=== PATIENT | female | born 1955 | race Caucasian/White ===

== ENCOUNTER → 2022-08-16 11:02 | Day surgery (SDC) | payer MEDICARE, MEDICAID, SELFPAY ==
[2022-08-13 12:07] VITALS: BMI 33.6
[2022-08-16] VITALS (7 sets, daily range): BP systolic 116–147; BP diastolic 58–100; PULSE 79–89; RESP 14–22; TEMP 36.1–36.3; O2SAT 90–96; BMI 33.3
--- NOTE | 2022-08-16 11:42 | P.HP_ITS ---
History of Present Illness History of Present Illness Date Patient Seen: 08/16/22 Time Patient Seen: 11:42 Chief complaint: LEFT CARPAL TUNNEL RELEASE Narrative: 66-year-old female with neuropathy involving the left upper extremity. Patient had an EMG study positive for both carpal tunnel and cubital tunnel. Patient History Medical History Anemia Arthritis Asthma COPD (chronic obstructive pulmonary disease) COVID-19 virus infection (10/2021) Diabetes Emphysema lung Fibromyalgia GERD (gastroesophageal reflux disease) Headache, migraine Hepatitis History of angina History of carotid stenosis HLD (hyperlipidemia) HTN (hypertension) Liver disease Peripheral neuropathy Thyroid disease Surgical History History of bilateral tubal ligation History of carpal tunnel release History of section Hx of bilateral cataract extraction Hx of blepharoplasty S/P thyroid biopsy Family & Social History Social History: household members children Prior Living Arrangements Apartment/Condo Tobacco & Substance use: Smoking Status Former smoker alcohol intake former Substance Use Type does not use Meds Home Medications and Allergies Home Medications Medication Instructions Recorded Confirmed Type acetaminophen 500 mg tablet 500 mg PO Q6H PRN Pain 08/13/22 08/13/22 History albuterol sulfate 90 mcg/actuation 2 puff inhalation Q4-6H PRN 08/13/22 08/13/22 History aerosol inhaler Shortness Of Breath azithromycin 500 mg tablet 500 mg PO QMWF History of chronic 08/13/22 08/13/22 History lung infections budesonide 0.5 mg/2 mL suspension 0.5 mg inhalation BID 08/13/22 08/13/22 History for nebulization cyclobenzaprine 10 mg tablet 5 mg PO TID PRN Muscle Pain 08/13/22 08/13/22 History cyclosporine 0.05 % eye drops in a 1 drp EYE-BOTH BID 08/13/22 08/13/22 History dropperette (Restasis) diltiazem HCl 360 mg 360 mg PO QPM 08/13/22 08/13/22 History tablet,extended release 24 hr fluoxetine 10 mg tablet 10 mg PO QPM 08/13/22 08/13/22 History fluticasone propionate 50 1 - 2 spray intranasal DAILY 08/13/22 08/13/22 History mcg/actuation nasal spray,suspension hydrocodone 5 mg-acetaminophen 325 1 tab PO Q4-6H PRN Pain 08/13/22 08/13/22 History mg tablet insulin glargine 100 unit/mL (3 85 unit SUBCUT BEDTIME 08/13/22 08/13/22 History mL) subcutaneous pen (Lantus Solostar U-100 Insulin) insulin lispro 100 unit/mL 16 unit SUBCUT TID 08/13/22 08/13/22 History subcutaneous pen (Humalog KwikPen (U-100) Insulin) liraglutide 0.6 mg/0.1 mL (18 mg/3 1.8 mg SUBCUT Q24H 08/13/22 08/13/22 History mL) subcutaneous pen injector (Victoza 2-Jamie) lorazepam 1 mg tablet 1 mg PO TID PRN Anxiety, sleep 08/13/22 08/13/22 History losartan 50 mg tablet 50 mg PO DAILY 08/13/22 08/13/22 History metformin 500 mg tablet 500 mg PO DAILY 08/13/22 08/13/22 History rosuvastatin 5 mg tablet 5 mg PO DAILY 08/13/22 08/13/22 History tiotropium 2.5 mcg-olodaterol 2.5 2 puff inhalation DAILY 08/13/22 08/13/22 History mcg/actuation mist for inhalation (Stiolto Respimat) Allergies Allergy/AdvReac Type Severity Reaction Status Date / Time aspirin Allergy Severe Anaphylaxis Verified 08/13/22 12:31 lisinopril AdvReac Severe Cough Verified 08/13/22 12:31 Exam Narrative Exam Narrative: Patient with decreased sensation in both the median and ulnar nerve distribution. No sign of any significant thenar atrophy or intrinsic wasting. Patient has full range of motion of the wrist and fingers as well as the elbow. Positive Tinel's, thumb compression, Phalen test. Positive Tinel's at the cubital tunnel as well. Assessment & Plan Assessment & Plan narrative: Patient with signs of both carpal tunnel and cubital tunnel to the left upper extremity. Positive physical exam findings as well as positive EMG study. I went over patient's diagnosis with her as well as treatment options. We discussed operative versus non operative treatment and all the risk and limitations associated with both. At this point patient is interested in operative treatment all of her questions and concerns were answered to her full satisfaction. The risk, benefits, alternatives, possible complications, operative course, and postop outcomes were discussed. Complications including but not limiting to bleeding, infection, fracture, nerve injury, continued pain postoperatively or instability postoperatively were discussed in detail. Medical complications including but not limited to deep venous thrombosis event, anesthesia complications with excessive bleeding, vascular events or cardiac events and oth er possible complications were discussed in detail. Need for postoperative rehabilitation and anticipated hospital stay and clinical course were discussed in detail. Patient acknowledges understanding and elects to proceed with surgery. Time Spent With Patient Critical Care time: I spent a total of [] minutes of critical care time on this patient's care today; this time is exclusive of procedural time.
--- NOTE | 2022-08-16 11:44 | PM.PREOP ---
Pre-operative Note Interval Note History & Physical reviewed/Exam performed by Physician: Yes Changes to H&P: No
[2022-08-16] MEDS: LACTATED RINGERS 1,000 ML 42 ML IV (12:08)
[2022-08-16] MEDS: FAMOTIDINE 20 MG/2 ML VIAL IV (12:08)
[2022-08-16] MEDS: CEFAZOLIN 2 GM/100 ML PREMIX 100 ML IV (12:25)
--- NOTE | 2022-08-16 12:37 | SUR.OPER ---
Supine on padded OR bed, head on pillow, arms secured on padded arm boards at <90 degrees abduction, legs uncrossed, safety belt at thigh, tape over blanket over lower legs.
[2022-08-16] MEDS: BUPIVACAINE 0.25% (PF) 30 ML, EPINEPHrine 0.15 MG INJ (12:44)
--- NOTE | 2022-08-16 13:13 | PM.OP.1 ---
Operative Date/Time/Diagnoses Date of procedure: 08/16/22 Time of procedure: 12:30 Pre-op diagnosis: Left carpal tunnel and cubital tunnel Post-op diagnosis: same Procedure & Clinicians Procedure: Left carpal tunnel and cubital tunnel release Same procedure as scheduled: Yes Indications: Left carpal tunnel and cubital tunnel Surgeon: Mickey Weiner Click Yes if Unassisted: Yes Anesthesia Type: General Operative Notes Findings: Compression of the median nerve at the carpal tunnel and compression of the ulnar nerve at the cubital tunnel. Closure Type: primary Specimen(s): none sent Estimated Blood Loss (mL): 2 Tourniquet time (min): 30 Procedure in detail: On date of service, the patient was met in the holding area. Patients operative site was signed and witnessed by the OR staff. The surgery was once again discussed with the patient, and any remaining questions they had were answered fully. Patient was taken back to the operating theater and placed on the operating table in a supine position. Great care was taken to ensure that all bony prominences were carefully padded. A well-padded tourniquet was placed up along the upper extremity. A timeout was performed to verify patient's name, procedure, and operative site. The arm was then prepped and draped in the normal sterile fashion. A 15 blade was used to incise through skin In the center of the palm. Pickups and tenotomy scissors were used to dissect down until the palmar fascia was visualized. The palmar fascia was then sharply incised using a 15 blade. This gave us good visualization of the carpal ligament. A small opening was made into the carpal ligament, and a curved hemostat was placed into that opening. A 15 blade was then used to sharply incise the carpal ligament with the structures beneath being protected by the hemostat. Pickups and Metzenbaum scissors were used to complete the decompression both distally and proximally. This provided a complete decompression of the median nerve. Wound was irrigated and then closed with nylon. We then turned our attention to the cubital tunnel. Ten blade was used to make an incision centered over the cubital tunnel. Ten blade was used incise through skin and fascial tissue. Electrocautery was used to achieve hemostasis. Deep knife was used to proceed with sharp dissection. Next, Metzenbaum scissors were used to identify the nerve proximal to the cubital tunnel. This was then decompressed proximally. Next, the ulnar nerve was decompressed through the cubital tunnel by releasing the cubital tunnel. This decompression was continued distally providing a complete decompression of the nerve. Wound was irrigated and then closed in a layered fashion. The hand was then cleaned, dried, and dressed. Patient was taken to the PACU in stable condition. Complications: none Post-operative Condition: stable Disposition: PACU Plan for aftercare: Patient follow our postoperative protocol for carpal tunnel and cubital tunnel release
[2022-08-16] MEDS: HYDROCODONE/ACET 5/325 TABLET 1 TAB PO (13:31)
[2022-08-16] MEDS: KETOROLAC 30 MG/ML VIAL 15 MG IV (13:34)
== END | disposition home or self-care (01) ==
PROVIDERS: PCP Registered Nurse; Referring Provider Orthopaedic Surgery; Visit Provider Orthopaedic Surgery
PROC: (CPT 64721; principal; 2022-08-16 12:15)
DX: G56.22 Lesion of ulnar nerve, left upper limb (principal); G56.02 Carpal tunnel syndrome, left upper limb
CPT/HCPCS: 64718; 64721; C9803; J0171; J0690; J1100; J1885; J2405; J2704; J2765; J3010